=== PATIENT | male | born 1975 | race Caucasian/White ===

== ENCOUNTER 2017-06-12 11:25 | Day surgery (SDC) | payer OTHER ==
[~2017-06-12] VITALS: Ht 177.8 cm; Wt 96.8 kg
[~2017-06-12 11:25] MED LIST: CEPHALEXIN500 M1 PO; FISH OIL 1000MG1 CAP PO; LAMISIL250 M1; NO HOME MEDICATIONS; NORCO 325 MG-7.1 TAB PO; PHENERGAN 25 TA25 MG PO; PROTONIX 40MG T40 MG PO; ULTRAM 50MG TAB50 MG PO
[2017-06-12 12:03] VITALS: BP 128/91; PULSE 77; TEMP 97.9
[2017-06-12 15:15] VITALS: BP 138/91; PULSE 65; TEMP 98.1
[2017-06-12] MEDS ORDERED: PHENERGAN 25 TA25 MG PO (15:27)
[2017-06-12] MEDS ORDERED: CEPHALEXIN500 M1 PO (15:29)
[2017-06-12] MEDS ORDERED: NORCO 325 MG-7.1 TAB PO (15:29)
[2017-06-12 15:30] VITALS: BP 141/91; PULSE 63
== END 2017-06-12 16:02 | disposition home or self-care (01) ==
LOC: SDCO 11:25
DX: S86.011A Strain of right Achilles tendon, initial encounter (principal); I48.91 Unspecified atrial fibrillation; Z82.5 Family history of asthma and other chronic lower respiratory diseases; Z82.49 Family history of ischemic heart disease and other diseases of the circulatory system; X50.9XXA Other and unspecified overexertion or strenuous movements or postures, initial encounter; Y92.9 Unspecified place or not applicable; Y93.67 Activity, basketball
CPT/HCPCS: J0330; J1100; J1170; J1885; J2250; J2405; J2704; J2795; J3010; J7120

== ENCOUNTER → 2018-11-18 | Outpatient (CLI) | payer OTHER | LOC: COL.VAS 10:54 | DX: R00.1 Bradycardia, unspecified (principal) ==

== ENCOUNTER 2020-06-30 12:22 | Day surgery (SDC) | payer OTHER ==
[~2020-06-30] VITALS: Ht 180.3 cm; Wt 97.3 kg
[2020-06-30 13:13] VITALS: BP 127/78; PULSE 57; TEMP 98.3
[2020-06-30] MEDS ORDERED: PRINIVIL10 MG PO (13:19)
[2020-06-30] MEDS ORDERED: NORCO 325 MG-7.1 TAB PO (15:41)
[2020-06-30 16:50] VITALS: BP 129/78; PULSE 54; TEMP 97.3
--- NOTE | 2020-06-30 16:50 | NUR ---
Pt to [facility] bay 8 via cart from PACU. Pt awake and alert. Taking sips of water and tolerating it without difficulties. Pt denies pain. Muffin given per pt request. Royal wrap dressing to left lower extremity is clean, dry, and intact. Pt is able to move left toes, and they are warm, dry, and pink with sensation intact. Legs elevated, Ice pack to left knee in place. Side rails up x2. Call light within reach.
[2020-06-30 17:05] VITALS: BP 125/78; PULSE 49
--- NOTE | 2020-06-30 17:05 | NUR ---
Pt continues to rest. Denies needs. Call light within reach.
[2020-06-30 17:20] VITALS: BP 127/73; PULSE 50
--- NOTE | 2020-06-30 17:20 | NUR ---
Pt up to restroom with crutches and stand by assist. Pt voids without difficulties. Pt back to room. IV site out with all parts intact. Pt dressing. Call light within reach.
--- NOTE | 2020-06-30 17:35 | NUR ---
Discharge instructions reviewed. Pt voices understanding. Pt escorted to private car via wheel chair. Pt accompanied home by his .
== END 2020-06-30 17:35 | disposition home or self-care (01) ==
LOC: SDCO 12:22
DX: S83.242A Other tear of medial meniscus, current injury, left knee, initial encounter (principal); I48.91 Unspecified atrial fibrillation; I10 Essential (primary) hypertension; Z20.828 Contact with and (suspected) exposure to other viral communicable diseases
CPT/HCPCS: J0171; J0690; J1100; J1885; J2405; J2704; J3010; J7120

== ENCOUNTER 2022-05-17 07:50 | Day surgery (SDC) | payer OTHER ==
[~2022-05-17] VITALS: Ht 177.8 cm; Wt 95.8 kg
[~2022-05-17 07:50] MED LIST changes: +PRINIVIL10 MG PO
[2022-05-17 08:32] VITALS: BP 134/88; PULSE 57; TEMP 98
[2022-05-17] MEDS ORDERED: COZAAR 50MG50 MG/TAB PO (08:47)
[2022-05-17 10:20] VITALS: BP 109/89; PULSE 76; TEMP 97.6
[2022-05-17 10:30] VITALS: BP 122/87; PULSE 64
[2022-05-17 10:45] VITALS: BP 119/88; PULSE 54
--- NOTE | 2022-05-17 11:00 | NUR ---
Pt returned via cart to bay 3 post procedure at 1020. Pt assisted to ambulate to recliner in bay. VSS-documented. Pt has tolerated oral intake. present at time of dc. DC teaching completed, pt and verbalized understanding. IV removed and pressure dressing applied. Pt dressed and taken via wheelchair to private vehicle for dc home with driving.
== END 2022-05-17 11:00 | disposition home or self-care (01) ==
LOC: SDCO 07:50
DX: Z12.11 Encounter for screening for malignant neoplasm of colon (principal); I10 Essential (primary) hypertension; Z79.899 Other long term (current) drug therapy
CPT/HCPCS: J2704

== ENCOUNTER → 2023-11-19 | Outpatient (CLI) | payer OTHER ==
[~2023-11-19] MED LIST changes: +COZAAR 50MG50 MG/TAB PO; +Iohexol 300 - 100 ML VIAL IV ONE; +NS 100 ML IV SCH
== END ==
LOC: COL.RAD 06:57
DX: N28.1 Cyst of kidney, acquired (principal); M43.17 Spondylolisthesis, lumbosacral region; M51.37 Other intervertebral disc degeneration, lumbosacral region; M47.816 Spondylosis without myelopathy or radiculopathy, lumbar region
CPT/HCPCS: Q9967